=== PATIENT | male | born 1935 | race Caucasian/White ===

== ENCOUNTER 2017-07-02 09:08 | Observation (INO) | payer MEDICARE, BC ==
[2017-07-02 10:10] LABS: #Basophils 0.1 thou/uL (0.0-0.2); #Eosinphils 0.1 thou/uL (0.0-0.7); #Lymphocytes 1.2 thou/uL (1.20-3.40); #Monocytes 0.5 thou/uL (0.11-0.59); %Basophils 0.7 % (0.0-1.0); %Eosinophils 1.1 % (0.0-10.0); %Lymphocytes 15.1 % (21.0-51.0); %Monocytes 6.5 % (0.0-10.0); Hematocrit 35.4 % (42.0-52.0); Mean Platelet Volume 7.1 fL (7.4-10.4); Red Blood Cell (RBC) Count 3.58 mill/uL (4.70-6.10); White Blood Cell (WBC) Count 7.9 thou/uL (4.8-10.8)
[2017-07-02 10:18] LABS: Bilirubin Negative (Negative); Blood, Urine Negative (Negative); Glucose, Urine (Dipstick) Negative (Negative); Ketone, Urine Negative (Negative); Nitrite Negative (Negative); Protein, Urine (Dipstick) Negative (Neg-Trace); Urobilinogen 0.2 mg/dL (0.2-1.0)
[2017-07-02 10:26] LABS: ALT (SGPT) 14 U/L (8-55); AST (SGOT) 16 U/L (5-34); Alkaline Phosphatase 73 U/L (40-150); Anion Gap 15 mmol/L (10-20); BUN (Urea Nitrogen) 21 mg/dL (8.4-25.7); Bilirubin, Total 0.3 mg/dL (0.2-1.2); CK (CPK) 72 U/L (30-200); Calc. Creatinine Clearance 0 mL/min (70-130); Calcium 9.2 mg/dL (7.8-10.44); Carbon Dioxide 22 mmol/L (23-31); Chloride 103 mmol/L (98-107); Estimated GFR-MDRD 53; Globulin 2.6 g/dL (2.4-3.5); Lipase 12 U/L (8-78); Protein, Total 6.3 g/dL (5.8-8.1)
[2017-07-02 10:31] LABS: Troponin I Less than 0.010 ng/mL (< 0.028)
--- NOTE | 2017-07-02 11:07 | RAD ---
SINGLE VIEW OF THE CHEST: COMPARISON: 06/10/17. HISTORY: Weakness and altered mental status. FINDINGS: A single view of the chest shows a normal size cardiomediastinal silhouette. The pacemaker is uncha nged in position. There is no evidence of consolidation, mass, or pleural effusion. There are mult iple remote healed right rib fractures. IMPRESSION: No evidence of acute cardiopulmonary disease. POS: CHELSEY
[2017-07-02 15:01] VITALS: BMI 20.1
[2017-07-02] MEDS ORDERED: Acetaminophen 325 MG TAB PO PRN (15:07)
[2017-07-02] MEDS ORDERED: Ondansetron ODT 4 MG TAB PO PRN (15:07)
[2017-07-02 15:42] LABS: Troponin I Less than 0.010 ng/mL (< 0.028)
[2017-07-02 16:17] LABS: Potassium, Urine 44.9 mmol/L
[2017-07-02] MEDS: Famotidine 20 MG TAB PO SCH (20:38)
--- NOTE | 2017-07-02 20:47 | HP-2 ---
CODE STATUS: DNR. PRIMARY CARE PHYSICIAN: [facility] carlotta. ATTENDING PHYSICIAN: Shukri Krause MD PGY1 : Felix Cm. HISTORIAN: His son, Garrison Michael CHIEF COMPLAINT: Syncope. HISTORY OF PRESENT ILLNESS: This is a 81-year-old male who presents with a syncopal episode that happened at breakfast. His son states that he slumped over at breakfast, felt weak and became diaphoretic. He states the swelling resolved when EMS arrived and gave him supplemental oxygen. He did admit to some chest pain, shortness of breath during that time. He could not describe the pain to me. Upon admission to the ED, he was fecally impacted and had to be disimpacted. His son would like to have his PCP known of his hospitalization. He has no other complaints at this time. PAST MEDICAL HISTORY: Shows BPH, CAD, hypertension, hyperlipidemia, hypothyroidism, depression, and dementia. PAST SURGICAL HISTORY: Pacemaker placement, 3-vessel stent and hernia repair. ALLERGIES: No known allergies. MEDICATIONS: 1. Zoloft 25 mg 2. Pravastatin 40 mg at bedtime 3. Memantine 10 mg b.i.d. 4. Synthroid 50 mcg. 5. Donepezil 10 mg at bedtime. 6. Vitamin B complex. 7. Calcium carbonate 500 mg. 8. Lisinopril 5 mg. FAMILY HISTORY: Noncontributory. SOCIAL HISTORY: Denies tobacco, alcohol, or drug use. REVIEW OF SYSTEMS: General: Denies fevers or chills. Denies weight changes or appetite changes. Denies night sweats, or fatigue. Eyes: Denies any vision changes or eye pain. ENT: Denies any nasal congestion, rhinorrhea, or sore throat. Respiratory: Denies any cough or congestion. Does admit to shortness of breath. Cardiovascular: Does admit to chest pain. Denies any palpitations, edema or orthopnea. Gastrointestinal: Denies any nausea, vomiting, diarrhea. He does admit to constipation. Denies any abdominal pain or GI bleeding. : He admits to incontinence problems. Genitourinary: Denies any dysuria. Skin: He denies any rashes, lesions, jaundice, or itching. Musculoskeletal: Denies any pain, tenderness, stiffness, or swelling or arthritis. Neurologic: He admits to some weakness. Denies any numbness, syncope, or seizures. PSYCHIATRIC HISTORY: He denies anxiety or depression. PHYSICAL EXAMINATION: VITAL SIGNS: Blood pressure was 131/73, pulse was 60, respiratory rate 13, temperature max 97.7, pulse ox 98% on room air, current weight is 57 kilograms. GENERAL: He is alert. He is oriented x2. He was appropriately interactive. HEENT: PERRLA. Conjunctivae within normal limits. ENT: Tympanic membranes are pearly de souza without bulging or erythema. Nasal mucosa is within normal limits. Oropharynx within normal limits. NECK: Supple, no lymphadenopathy, no thyromegaly. CARDIOVASCULAR: Regular rate and rhythm with a systolic murmur is present. Radial and pedal pulses were equal bilaterally. RESPIRATORY: Normal effort. No retractions. Clear lungs to auscultation bilaterally. SKIN: Warm and dry. ABDOMEN: Soft, nontender. Bowel sounds were present x4. No masses or distention. EXTREMITIES: No clubbing, cyanosis or edema was present. MUSCULOSKELETAL: Structure, tone and muscle strength are within normal limits. He has a sacral decubitus ulcer. NEUROLOGIC: No focal neurologic deficits. Sensation were within normal limits. Cranial nerves II-XII are grossly intact. GCS is not assessed. PSYCHIATRIC: He is Appropriate. LABORATORY DATA: Hemoglobin is 11.7, hematocrit 35.4, white blood cell count 7.9, platelet count 248,000, MCV 98.8,76.5% neutrophils. Sodium is 135, potassium is 4.7, chloride 103, bicarbonate is 22, BUN 21, creatinine 1.31, glucose 122, calcium is 9.2, total protein is 6.3, albumin is 3.7, total bilirubin 0.3, AST is 16, ALT is 14, alkaline phosphatase 73, ammonia was 22. CK was 72, CK-MB was 2.1. Troponins are 0.01 less than. Lipase was 12. Urinalysis was unremarkable. IMAGINGS: EKG showed a paced rhythm with no ectopic beats. Chest x-ray showed nothing acute. ASSESSMENT AND PLAN: A 81-year-old male with a history of dementia, hypertension, hyperlipidemia, hypothyroidism, depression, and coronary artery disease presents with: 1. Syncopal episode. He did complain of some chest pain, so we will trend troponins to rule out CV cause. We are going to order an echo because of the suspected aortic stenosis murmur of a new finding. 2. Dementia. We are going to continue his memantine. 3. Hypothyroidism. We are going to continue his Synthroid. 4. Depression. We are going to continue Zoloft. 5. Hypertension. Continue lisinopril. 6. Sacral Decubitis ulcer. Monitor with nursing staff. Disposition and length of hospital stay will be observed and a less than 1 midnight. Symptomatic medications will be provided. History and physical exam as well as management has been discussed with Dr. Jimi [facility]
[2017-07-02] MEDS ORDERED: Atorvastatin Calcium 10 MG TAB PO SCH (21:00)
[2017-07-02] MEDS ORDERED: Donepezil HCl 10 MG TAB PO SCH (21:00)
--- NOTE | 2017-07-03 01:09 | CON ---
DATE OF CONSULTATION: 07/02/2017 DATE OF ADMISSION: 07/02/2017 CODE STATUS: DNR CHIEF COMPLAINT: Diaphoresis. HISTORY OF PRESENT ILLNESS: This is a 81-year-old male with multiple past medical problems including the aforementioned and presented with an episode while eating, profound diaphoresis. Subsequently, EMS was called. He was noted to have mild low blood pressures in the 90 systolic and was taken to the ED. In the ED, he had a relatively unremarkable workup. It has been our service because of a concern for a syncope versus chest pain. Much of the history on previous exam was given by the son who is quite involved with his care. Currently, the son is NOT at bedside and so history is somewhat limited. REVIEW OF SYSTEMS: General: No fever or chills. He denies any eye pain or discharge. Denies any sore throat or oral lesions. Denies chest pain or trouble breathing, palpitations. Denies cough, congestion or hemoptysis. Denies nausea, vomiting, diarrhea or constipation, although I was told he was deemed disimpacted in the ED. Genitourinary: Denies dysuria, urgency. Musculoskeletal: Denies myalgias or arthralgias. Neurologic: Denies numbness or weakness at this time. PAST MEDICAL HISTORY: Significant for, 1. Dementia. 2. Diabetes mellitus. 3. Benign prostatic hypertrophy. 4. Hypothyroidism. 5. Hypertension. 6. Coronary artery disease. PAST SURGICAL HISTORY: Positive for at least 1 angioplasty with stent placement x3 and is limited in his current setting. ALLERGIES: No known drug allergies. MEDICATIONS: He currently cannot answer. SOCIAL HISTORY: He currently tells me he does not smoke, drink or do any drugs. FAMILY HISTORY: He does not know. PHYSICAL EXAMINATION: VITAL SIGNS: Presented with temperature 97.6, pulse 60, respirations 18, O2 sat 90% on room air, and blood pressure 164/79. GENERAL: A thin white male in no acute distress, resting comfortably in bed. HEENT: Eyes without icterus or injection. Moist mucous membranes. No thyromegaly. CARDIOVASCULAR: Regular rate and rhythm. He has a prominent 3/6 systolic murmur over the aortic area. EXTREMITIES: Warm extremities, no edema. LUNGS: Clear to auscultation bilaterally without wheeze, rale or rhonchi. GASTROINTESTINAL: Scaphoid abdomen. Bowel sounds positive. Nontender to palpation. GENITOURINARY: Deferred. MUSCULOSKELETAL: No obvious deformity or contracture. SKIN: Positive for a stage I sacral decubitus. NEUROLOGIC: Motor is 5/5 in both upper and lower extremity. Sensation intact to light touch throughout. PSYCHIATRIC: He has a flat affect and face. He is alert and oriented x1. LABORATORY DATA: Include a white count of 7.9, hemoglobin 11.7 with an MCV of 9.8, platelets 248. Chemistry: Sodium 135, potassium 4.7, chloride 103, CO2 of 22, creatinine 1.31 with creatinine baseline of 0.98, glucose 122 and LFTs that are relatively normal. TSH 2.63. Urine is negative. EKG was reportedly negative, but cannot find this in the system. ASSESSMENT AND PLAN: This is a 81-year-old with: 1. Diaphoresis. Etiology could be multifactorial from the episode that was related to his impaction that was noted in the ED to ACS. 2. Pain. We will rule out with troponins and discuss with family in light of the onset of his advanced dementia and how much investigation we would like to perform on this. 3. Coronary artery disease. We will continue Lipitor, lisinopril low dose and monitor his blood pressures. 4. Hypothyroidism. We will continue Synthroid. 5. Hypertension. Continue lisinopril as well 6. Hyperlipidemia. Continue the statin. 7. Depression. We will continue sertraline 25. 8. Dementia. We will continue donepezil from reported home medications. 9. Murmur which is apparently new. We will obtain a TTE. 10. Suspected acute kidney injury, strict I's and O's. We will obtain urine protein creatinine ratio and recheck in the morning. 11. Hyponatremia of uncertain etiology. We will obtain urine osmolality and sodium. 12. Anemia near macrocytic. We will obtain B12, folate and iron studies. 13. Deep venous thrombosis prophylaxis with Lovenox. 12. Gastrointestinal prophylaxis with diet which is supposed to be nectar thick per previous recommendations. Sacral decubitus stage 1 - wound care following MTDD
[2017-07-03 05:11] LABS: Anion Gap 14 mmol/L (10-20); BUN (Urea Nitrogen) 19 mg/dL (8.4-25.7); Calc. Creatinine Clearance 51 mL/min (70-130); Calcium 9.1 mg/dL (7.8-10.44); Carbon Dioxide 23 mmol/L (23-31); Chloride 102 mmol/L (98-107); Estimated GFR-MDRD 70
[2017-07-03] MEDS ORDERED: Levothyroxine Sodium 50 MCG TAB PO SCH (06:00)
--- NOTE | 2017-07-03 07:06 | PDOC.FM ---
- Subjective Subjective: Patient is demented so history is not very reliable. He does specifically deny chest pain, sob, or lightheadedness. He also denies fever, chills, n/v/d. - Objective Vital Signs & Weight: Vital Signs (12 hours) Temp Pulse Resp BP Pulse Ox 07/03/17 05:10 98.7 F 60 16 136/77 98 07/02/17 23:15 97.6 F 60 18 136/79 97 07/02/17 20:35 98.5 F 62 18 07/02/17 19:15 98.5 F 62 18 177/77 H 100 Weight Weight 61.774 kg I&O: 07/02/17 07/03/17 07/04/17 06:59 06:59 06:59 Intake Total 660 Balance 660 Result Diagrams: 07/02/17 09:51 07/03/17 04:26 <Felix Cm - Last Filed: 07/03/17 08:40> - Objective Vital Signs & Weight: Vital Signs (12 hours) Temp Pulse Resp BP BP BP BP 07/03/17 11:05 97.6 F 60 16 150/71 H 07/03/17 10:19 60 150/71 H 07/03/17 08:00 97.9 F 60 16 07/03/17 07:24 97.9 F 60 16 113/80 99/65 07/03/17 05:10 98.7 F 60 16 136/77 BP Pulse Ox 07/03/17 11:05 96 07/03/17 10:19 07/03/17 08:00 07/03/17 07:24 162/81 H 98 07/03/17 05:10 98 Weight Weight 61.774 kg I&O: 07/02/17 07/03/17 07/04/17 06:59 06:59 06:59 Intake Total 660 480 Balance 660 480 Result Diagrams: 07/02/17 09:51 07/03/17 04:26 <Daniel Jones - Last Filed: 07/03/17 14:49> Phys Exam - Physical Examination HEENT: PERRLA Neck: no nodes Respiratory: no wheezing, clear to auscultation bilateral Cardiovascular: RRR Systolic murmur noted. Gastrointestinal: soft, non-tender, no distention, positive bowel sounds Musculoskeletal: no edema, pulses present Neurological: non-focal, normal sensation, moves all 4 limbs Psychiatric: normal affect <Felix Cm - Last Filed: 07/03/17 08:40> Dx/Plan (1) Syncope Code(s): R55 - SYNCOPE AND COLLAPSE Status: Acute Plan: Passed out yesterday. No further symptoms. -Troponins negative x3 -Plan for ECHO (2) CAD (coronary artery disease) Code(s): I25.10 - ATHSCL HEART DISEASE OF [place] CORONARY ARTERY W/O ANG PCTRS Status: Acute Plan: Continue Statin (3) Decubitus ulcer of sacral region, stage 1 Code(s): L89.151 - PRESSURE ULCER OF SACRAL REGION, STAGE 1 Status: Acute Plan: -Monitor with nursing staff (4) Dementia Code(s): F03.90 - UNSPECIFIED DEMENTIA WITHOUT BEHAVIORAL DISTURBANCE Status: Acute Plan: -Continue donepezil, memantine (5) Heart murmur Code(s): R01.1 - CARDIAC MURMUR, UNSPECIFIED Status: Acute Plan: Plan for ECHO (6) Hypertension Code(s): I10 - ESSENTIAL (PRIMARY) HYPERTENSION Status: Acute Plan: Continue Lisinopril (7) Hypothyroidism Code(s): E03.9 - HYPOTHYROIDISM, UNSPECIFIED Status: Acute Plan: Continue Synthroid - Plan Plan: Pending echo results, patient will be discharged. <Felix Cm - Last Filed: 07/03/17 08:40> Attending Addendum - Attending Addendum I personally evaluated the patient and discussed the management with Dr. Cm. I agree with the History, Examination, Assessment and Plan documented above with any addition or exceptions noted below. Patient with possible syncopal episode prior to admission. He has multiple risk factors for syncope including orthostatic vitals, donepazil therapy, age associated autonomic neuropathy, etc. He has been worked up for serious causes of syncope such as ACS and the son reports a desire to avoid any invasive therapies. After discussion with son and patient's PCP, decision has been made to discharge him back to his memory care unit today. Decision also made today in talks with son and patient's PCP to discontinue any unnecessary meds, and he will remain only on levothyroxine therapy and zoloft, and they are in agreement with these changes as other medications are unlikely to benefit the patient with advanced dementia. <Daniel Jones - Last Filed: 07/03/17 14:49>
[2017-07-03] MEDS ORDERED: Lisinopril 5 MG TAB PO SCH (09:00)
[2017-07-03] MEDS ORDERED: Calcium Carbonate 500 MG ChewTAB PO SCH (09:00)
[2017-07-03] MEDS ORDERED: Stress 600 With Zinc 1 TAB PO SCH (09:00)
[2017-07-03] MEDS: Famotidine 20 MG TAB PO SCH (10:18)
[2017-07-03 10:22] VITALS: BP 150/71
[2017-07-03 11:31] VITALS: TEMP 97.6
--- NOTE | 2017-07-03 14:51 | PDOC.EVN ---
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 It was decided to reduce his medical therapies to just Synthroid and Zoloft. His son said that he realizes his father is not doing well and that he just wants him to be comfortable at this time. I also called his PCP, Dr. Ortiz and he was in agreement with this plan as well. 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 His son said that he would like his father to be discharged back to his facility and that he would have that conversation with Dr. Ortiz in the coming weeks.
--- NOTE | 2017-07-03 20:38 | DIS-2 ---
DATE OF ADMISSION: 07/02/2017 DATE OF DISCHARGE: 07/03/2017 RESIDENT: Dr. Cm. ADMITTING ATTENDING: Dr. Krause. DISCHARGE ATTENDING: Dr. Jones. CONSULTATIONS: None. PROCEDURE PERFORMED: Transthoracic echocardiogram. PRIMARY DIAGNOSES: 1. Syncopal episode. 2. Coronary artery disease. 3. Decubitus ulcer of the sacral region. 4. Dementia. 5. Heart murmur, likely aortic stenosis. 6. Hypertension. 7. Hypothyroidism. DISCHARGE MEDICATIONS: 1. Zoloft 25 mg. 2. Synthroid 50 mcg. DISCONTINUED MEDICATIONS: 1. Tamsulosin 0.4 mg. 2. Metformin 500 mg. 3. Pravastatin 40 mg. 4. Memantine 10 mg. 5. Donepezil 10 mg. 6. Vitamin B complex. 7. Calcium carbonate 500 mg. 8. Lisinopril 5 mg. HISTORY OF PRESENT ILLNESS AND HOSPITAL COURSE: This is a 81-year-old male who presents with a sync opal episode that happened at breakfast. His son states that he slumped over at breakfast, felt wea k and became diaphoretic. He states the sweating resolved when EMS arrived and gave him supplementa l oxygen. He did admit to some chest pain and shortness of breath during that time. He could not d escribe the pain to me. Upon admission to the ED, he was fecally impacted and had to be disimpacted manually. His son would like to have his PCP known of his hospitalization. He has no other compla ints at this time. During the hospitalization, it was found that he had a new undocumented murmur a nd so an echocardiogram was ordered. The echocardiogram did show normal left ventricle size, normal left ventricle wall thickness, left ventricle systolic function of 50% to 55%, diastolic dysfunctio n noted. No regional wall motion abnormalities. Mild to moderate aortic stenosis is present and th ickened aortic valve leaflets noted. The patient is a DNR/DNI and it was opted to not have any medi raul treatment and he is not a surgical candidate at this time either. The patient's son who is his guardian has decided to reduce care down to the bare minimum to make sure that his father is comfort able at the end of life and that none of these medications will be causing him any problems and so t hat is why we discontinued all except for his Synthroid and his Zoloft. He will follow up with his primary care physician, Dr. Leonel Mayo and we will talk about transferring the patient to hospice or palliative care. The patient tolerated the hospitalization well and was discharged in appropriat e condition. He lost more than 10% of his body weight. He continually loses weight and he is in th e endstage of his dementia, so that is what had prompted us to decrease his treatment at this time. up as well forgot this part. DISPOSITION: Stable. DISCHARGE INSTRUCTIONS: 1. Location: He will be discharged back to his home facility. He lives in a residential home here in [facility]. 2. Diet. Will be as tolerated. He was on thickened liquids here. We do encourage him to increase his p.o. liquid intake, so that his hydration status will improve. 3. Activity: Will be as tolerated. He is a fall risk. I never saw him ambulate during this hospi talization, so he may be a kind of bed rest and with transfer help. 4. Followup: Follow up will be with Dr. Leonel Mayo, his primary care physician within 1 week. W e wish him the best of luck and hope that he has a comfortable life going forward.
== END 2017-07-03 14:51 ==
LOC: ERS 09:08 → 2SW 12:33
PROVIDERS: ADMIT Family Medicine; ATTEND Family Medicine
DX: R55 Syncope and collapse (principal); I25.10 Atherosclerotic heart disease of native coronary artery without angina pectoris; L89.159 Pressure ulcer of sacral region, unspecified stage; F03.90 Unspecified dementia, unspecified severity, without behavioral disturbance, psychotic disturbance, mood disturbance, and anxiety; E11.9 Type 2 diabetes mellitus without complications; I10 Essential (primary) hypertension; E03.9 Hypothyroidism, unspecified; N40.0 Benign prostatic hyperplasia without lower urinary tract symptoms; E78.5 Hyperlipidemia, unspecified; F32.9 Major depressive disorder, single episode, unspecified; Z79.899 Other long term (current) drug therapy; Z95.0 Presence of cardiac pacemaker; Z95.5 Presence of coronary angioplasty implant and graft
CPT/HCPCS: 51701; 71010; 80048; 81003; 82140; 82436; 82550; 82553; 82570; 83690; 83935; 84133; 84300; 84484 ×2; 87040; 87086; 93005; 93306; 99285; G0378; 36415; 80053; 84443; 85025